=== PATIENT | male | born 1980 | race African-American/Black ===

== ENCOUNTER 2020-03-10 20:28 | Emergency (ER) | payer SELFPAY ==
[~2020-03-10] VITALS: Ht 193 cm; Wt 70.0 kg
[2020-03-10] MEDS ORDERED: ONDANSETRON 2MG/ML, 2ML ONE (20:56)
[2020-03-10] MEDS ORDERED: ACETAMINOPHEN 500 MG TABLET ONE (20:56)
[2020-03-10] MEDS ORDERED: SODIUM CHLORIDE 0.9% 1,000ML IVBOLUS ONE (21:00)
[2020-03-10] MEDS ORDERED: ACETAMINOPHEN 500 MG TABLET PO ONE (21:00)
[2020-03-10] MEDS ORDERED: SODIUM CHLORIDE FLUSH 10ML SYR IVF ONE (21:00)
[2020-03-10] MEDS ORDERED: ONDANSETRON 2MG/ML, 2ML IVPush ONE (21:00)
--- NOTE | 2020-03-10 21:23 | NUR ---
PT CAME IN [place] FEVER, CHILLS, FEELING DISORIENTAED (PT AOX4), FATIGUE, AND SCABS THAT HAVE BEEN LEAKING PUSS ON HIS BODY X 2 WEEKS. PT RESTING IN [facility]. CONNECTED TO ALL MONITORING EQUIPMENT. EKG COMPLETE. BLOOD CULUTRES DRAWN. PT MEDICATED PER APR.
[2020-03-10 21:30] LABS: BASOPHILS % (AUTO) 0 % (0-1); EOSINOPHILS % (AUTO) 0 % (1-7); LYMPHOCYTES % (AUTO) 10 % (22-44); MEAN CORPUSCULAR HEMOGLOBIN 27.8 pg (27.5-34.5); MEAN CORPUSCULAR HGB CONC 33.3 g/dL (33.2-36.2); MEAN PLATELET VOLUME 9.1 fL (7.4-10.4); MONOCYTES % (AUTO) 7 % (2-9); NEUTROPHILS % (AUTO) 83 % (42-75); PLATELET COUNT 395 x10^3/uL (130-400); RED BLOOD COUNT 4.95 x10^6/uL (4.38-5.82); RED CELL DISTRIBUTION WIDTH 16.2 % (9.4-14.8)
[2020-03-10 21:38] LABS: ALANINE AMINOTRANSFERASE 42 U/L (12-78); ALBUMIN 2.8 g/dL (3.4-5.0); ANION GAP 7 mmol/L (5-15); CALCIUM 8.7 mg/dL (8.5-10.1); CHLORIDE 101 mmol/L (98-107); CREATININE 1.06 mg/dL (0.7-1.3)
[2020-03-10 21:40] LABS: ALKALINE PHOSPHATASE 101 U/L (45-117); BILIRUBIN,TOTAL 0.5 mg/dL (0.2-1.0); TOTAL PROTEIN 8.6 g/dL (6.4-8.2)
[2020-03-10 21:54] LABS: MD SCAN
--- NOTE | 2020-03-10 22:03 | NUR ---
ASSUMED CARE FROM ROSA ELENA ARIAS.
--- NOTE | 2020-03-10 23:03 | NUR ---
PT UNABLE TO GIVE URINE SAMPLE AT THIS TIME.
--- NOTE | 2020-03-10 23:09 | NUR ---
PT RESTING IN [facility]. TEMPERATURE RECHECKED ORALLY - 100.0F. MONITORING IN PLACE, DOUG AT THIS TIME, CYNTHIA.
[2020-03-10] MEDS ORDERED: OMNIPAQUE 350 MG/ML, 100ML BOTTLE ONE (23:10)
[2020-03-10 23:32] LABS: MICROSCOPIC AUTO
[2020-03-10 23:44] LABS: AMPHETAMINE SCREEN, URINE Positive (Negative); BARBITURATE SCREEN, URINE Negative (Negative); BENZODIAZEPINE SCREEN, URINE Negative (Negative); CANNABINOID SCREEN, URINE Positive (Negative); COCAINE SCREEN, URINE Negative (Negative); METHADONE SCREEN, URINE Negative (Negative); OPIATE SCREEN, URINE Negative (Negative)
--- NOTE | 2020-03-11 00:44 | NUR ---
REPORT GIVEN TO ROSA ELENA PADILLA.
[2020-03-11 01:28] VITALS: BP 134/78
== END 2020-03-11 01:31 | disposition home or self-care (01) ==
LOC: ED 03-11 01:30
DX: D72.829 Elevated white blood cell count, unspecified (principal); J40 Bronchitis, not specified as acute or chronic; Z20.822 Contact with and (suspected) exposure to COVID-19; B34.9 Viral infection, unspecified; F15.129 Other stimulant abuse with intoxication, unspecified; R06.02 Shortness of breath; R50.9 Fever, unspecified; M79.10 Myalgia, unspecified site; R05 Cough; R00.0 Tachycardia, unspecified; I49.9 Cardiac arrhythmia, unspecified; F17.200 Nicotine dependence, unspecified, uncomplicated; Z72.9 Problem related to lifestyle, unspecified
CPT/HCPCS: 71045; 71275; 80053; 80307; 81001; 83605; 84145; 85025; 87040; 87086; 87635; 93005; 96374; 99285; J2405; J7030; Q9967